=== PATIENT | male | born 1955 | race Caucasian/White ===

== ENCOUNTER 2023-03-16 18:02 | Inpatient (IN) | payer MEDICAID ==
[2023-03-16] VITALS (9 sets, daily range): BP systolic 83–122; BP diastolic 50–70; TEMP 100.6; O2SAT 91–97
[~2023-03-16] VITALS: Ht 175.3 cm; Wt 69.9 kg
[2023-03-16 18:57] LABS: BASOPHILS % (AUTO) 0.1 % (0.0-2.0); EOSINOPHILS % (AUTO) 0.3 % (0.0-6.0); HEMATOCRIT 37 % (39-51); HEMOGLOBIN 12.1 g/dL (13.5-17.5); LYMPHOCYTES # (AUTO) 0.5 K/uL (0.8-4.8); LYMPHOCYTES % (AUTO) 5.7 % (20.0-44.0); MEAN CORPUSCULAR HEMOGLOBIN 26 PG (26.0-33.0); MEAN CORPUSCULAR HGB CONC 32 g/dl (31.0-36.0); MEAN CORPUSCULAR VOLUME 81 fL (80-96); MONOCYTES % (AUTO) 0.4 % (2.0-12.0); NEUTROPHILS # (AUTO) 8.4 K/uL (1.8-8.9); NEUTROPHILS % (AUTO) 93.5 % (43.0-81.0); PLATELET COUNT (AUTO) 295 K/uL (150-450); RED BLOOD CELL COUNT(AUTO) 4.62 MIL/uL (4.5-6.0); RED CELL DISTRIBUTION WIDTH 15.5 % (11.5-15.0)
[2023-03-16] MEDS ORDERED: VANCOMYCIN 1 GM in IV D5W 250 ML IV ONE (19:00)
[2023-03-16] MEDS ORDERED: IV NS 0.9% 500 ML BAG IV ONE ×2 (19:00→21:00)
[2023-03-16] MEDS ORDERED: IV NS 0.9% 1,000 ML BAG IV ONE (19:00)
[2023-03-16] MEDS ORDERED: ACETAMINOPHEN 650 MG/SUPP.RECT RC ONE ×2 (19:00→19:17)
[2023-03-16] MEDS ORDERED: CEFEPIME 2 GM in IV D5W 50 ML IV ONE (19:00)
[2023-03-16] MEDS ORDERED: BACL10TA PO (19:08)
[2023-03-16] MEDS ORDERED: ZOLP5TAB2 PO (19:08)
[2023-03-16] MEDS ORDERED: SILVER ALGINATE TP (19:08)
[2023-03-16] MEDS ORDERED: ACET-868 PO (19:08)
[2023-03-16] MEDS ORDERED: OXYC5TAB3 PO (19:08)
[2023-03-16] MEDS ORDERED: DOCU250C14 PO (19:08)
[2023-03-16] MEDS ORDERED: GABA600T PO (19:08)
[2023-03-16] MEDS ORDERED: [UNRECOGNIZED DRUG - CODE] SQ (19:08)
[2023-03-16] MEDS ORDERED: NITR0.4T48 SL (19:08)
[2023-03-16] MEDS ORDERED: MELA3TAB41 PO (19:08)
[2023-03-16] MEDS ORDERED: MULT400T5 PO (19:08)
[2023-03-16] MEDS ORDERED: TRIA15OI2 TP (19:08)
[2023-03-16] MEDS ORDERED: SENN-261 PO (19:08)
[2023-03-16 19:11] LABS: INR 1.18 (0.91-1.10); PARTIAL THROMBOPLASTIN TIME 31.4 SEC (24.3-34.3); PROTHROMBIN TIME 12.4 SECS (9.2-11.1)
[2023-03-16 19:15] LABS: LACTIC ACID 5.2 mmol/L (0.4-2.0)
[2023-03-16 19:28] LABS: ALANINE AMINOTRANSFERASE 96 U/L (12-78); ALBUMIN 2.5 g/dL (3.4-5.0); ALKALINE PHOSPHATASE 547 U/L (46-116); ASPARTATE AMINOTRANSFERASE 38 U/L (15-37); BILIRUBIN,DIRECT 0.9 mg/dL (0.0-0.2); BILIRUBIN,TOTAL 1.4 mg/dL (0.2-1.0); CALCIUM, SERUM 9.7 mg/dL (8.5-10.1); CARBON DIOXIDE 25 mmol/L (21-32); CHLORIDE 95 mmol/L (98-107); CREATININE 0.9 mg/dL (0.6-1.3); GLUCOSE 182 mg/dL (74-106); POTASSIUM 3.9 mmol/L (3.5-5.1); SODIUM SERUM 134 mmol/L (136-145); TOTAL PROTEIN, SERUM 8.4 g/dL (6.4-8.2); UREA NITROGEN, BLOOD 25 mg/dL (7-18)
[2023-03-16 20:22] LABS: APPEARANCE,URINE CLOUDY (CLEAR); COLOR,URINE YELLOW (YELLOW)
[2023-03-16 20:23] LABS: BILIRUBIN,URINE NEGATIVE (NEGATIVE); BLOOD, URINE 3+ Ery/uL (NEGATIVE); PROTEIN,URINE 2+ mg/dl (NEGATIVE); UGLUCOSE NEGATIVE (NEGATIVE)
[2023-03-16 20:24] LABS: KETONES,URINE TRACE mg/dL (NEGATIVE); LEUKOCYTE ESTERASE ,URINE 3+ (NEGATIVE); NITRITE, URINE POSITIVE (NEGATIVE); UROBILINOGEN,URINE 0.2 EU/dL (0.2)
[2023-03-16] MEDS ORDERED: NOREPINEPHRINE 8MG/250ML RTU 250 ML IV ONE ×2 (20:34→23:58)
[2023-03-16 20:50] LABS: ADD URINE CULTURE YES; BACTERIA,URINE 4+ /HPF (None Seen); RBC,URINE 21-50 /HPF (0-2); SQUAMOUS EPITHELIAL CELL,UR Few /HPF (None Seen); TRIPLE PHOSPHATE CRYSTAL,UR Few /HPF (None Seen); WBC,URINE TOO NUMEROUS TO COUN /HPF (0-3)
[2023-03-16] MEDS ORDERED: ACETAMINOPHEN 650 MG/SUPP.RECT RC PRN (21:00)
[2023-03-16] MEDS ORDERED: ONDANSETRON HCL/PF 4 MG/2 ML VIAL IVP PRN (21:00)
[2023-03-16] MEDS ORDERED: Z GUARD REMEDY 4 OZ OINT TP PRN (21:00)
[2023-03-16] MEDS ORDERED: NOREPINEPHRINE 8 MG in IV NS 0.9% 242 ML IV PRN (21:00)
[2023-03-16] MEDS: NOREPINEPHRINE 8 MG in IV NS 0.9% 242 ML IV PRN (22:54)
[2023-03-16] MEDS: IV NS 0.9% 1,000 ML IV PRN (23:02)
[2023-03-16] MEDS: HYDROCORTISONE SOD SUCCINATE 100 MG/2 ML VIAL IV SCH (23:02)
[2023-03-16] MEDS: PANTOPRAZOLE 40 MG VIAL IV SCH (23:02)
[2023-03-16] MEDS: ENOXAPARIN SODIUM 40 MG/0.4 ML DISP.SYRIN SQ SCH (23:03)
[2023-03-17] VITALS (91 sets, daily range): BP systolic 76–135; BP diastolic 38–75; TEMP 98.2–103.2; O2SAT 89–97
[2023-03-17] MEDS: NOREPINEPHRINE 8 MG in IV NS 0.9% 242 ML IV PRN ×2 (00:24→06:45)
[2023-03-17 04:29] LABS: BASOPHILS # (AUTO) 0.2 K/uL (0.0-0.2); BASOPHILS % (AUTO) 0.4 % (0.0-2.0); HEMATOCRIT 33 % (39-51); HEMOGLOBIN 10.4 g/dL (13.5-17.5); LYMPHOCYTES # (AUTO) 0.6 K/uL (0.8-4.8); LYMPHOCYTES % (AUTO) 1.2 % (20.0-44.0); MEAN CORPUSCULAR HEMOGLOBIN 26 PG (26.0-33.0); MEAN CORPUSCULAR HGB CONC 32 g/dl (31.0-36.0); MEAN CORPUSCULAR VOLUME 80 fL (80-96); MONOCYTES # (AUTO) 0.9 K/uL (0.1-1.30); MONOCYTES % (AUTO) 1.8 % (2.0-12.0); NEUTROPHILS % (AUTO) 96.6 % (43.0-81.0); PLATELET COUNT (AUTO) 347 K/uL (150-450); RED BLOOD CELL COUNT(AUTO) 4.07 MIL/uL (4.5-6.0); RED CELL DISTRIBUTION WIDTH 15.7 % (11.5-15.0)
[2023-03-17 04:34] LABS: WHITE BLOOD COUNT (AUTO) 48.6 K/uL (4.3-11.0)
[2023-03-17 04:37] LABS: CALCIUM, SERUM 8.8 mg/dL (8.5-10.1); CREATININE 1.3 mg/dL (0.6-1.3); PHOSPHORUS 3.9 mg/dL (2.5-4.9); POTASSIUM 3.5 mmol/L (3.5-5.1)
[2023-03-17 04:47] LABS: MAGNESIUM 1.2 mg/dL (1.8-2.4)
[2023-03-17 04:50] LABS: THYROID STIMULATING HORMONE 0.951 uIU/mL (0.358-3.74)
[2023-03-17 05:09] LABS: BAND % (MANUAL) 19 % (0.0-5.0); LYMPHOCYTES % (MANUAL) 1 % (16-48); MONOCYTES % (MANUAL) 4 % (0-11.0); MYELOCYTES % 1 % (0-0); NEUTROPHILS % (MANUAL) 75 (42-76)
[2023-03-17 05:10] LABS: PLATELET ESTIMATE ADEQUATE
[2023-03-17] MEDS: Magnesium 1GM/D5W 100ML PREMIX 100 ML IV SCH ×2 (06:03→07:11)
[2023-03-17] MEDS ORDERED: CEFEPIME 1 GM in IV D5W 50 ML IV SCH (07:00)
[2023-03-17] MEDS: VANCOMYCIN 0.75 GM in IV D5W 250 ML IV SCH ×2 (08:07→20:00)
[2023-03-17] MEDS: CEFEPIME 2 GM in IV D5W 100 ML IV SCH ×2 (08:07→19:07)
[2023-03-17] MEDS: HYDROCORTISONE SOD SUCCINATE 100 MG/2 ML VIAL IV SCH ×2 (08:13→21:11)
[2023-03-17] MEDS: PANTOPRAZOLE 40 MG VIAL IV SCH (08:13)
[2023-03-17] MEDS: DAKINS QUARTER STRENGTH (0.125%) 480 ML BOTTLE TOP SCH (09:00)
[2023-03-17] MEDS: IV NS 0.9% 1,000 ML IV PRN (12:41)
[2023-03-17] MEDS: ACETAMINOPHEN 325 MG TABLET PO PRN (19:09)
[2023-03-17] MEDS: ENOXAPARIN SODIUM 40 MG/0.4 ML DISP.SYRIN SQ SCH (21:11)
[2023-03-18] VITALS (93 sets, daily range): BP systolic 74–150; BP diastolic 42–99; TEMP 98.2–100; O2SAT 95–99
[2023-03-18] MEDS: IV NS 0.9% 1,000 ML IV PRN ×3 (00:01→19:54)
[2023-03-18] MEDS ORDERED: NOREPINEPHRINE 8MG/250ML RTU 250 ML IV ONE (00:54)
[2023-03-18] MEDS: NOREPINEPHRINE 8 MG in IV NS 0.9% 242 ML IV PRN ×2 (02:10→19:57)
[2023-03-18 04:46] LABS: HEMATOCRIT 31 % (39-51); HEMOGLOBIN 9.9 g/dL (13.5-17.5); LYMPHOCYTES # (AUTO) 1.1 K/uL (0.8-4.8); LYMPHOCYTES % (AUTO) 3.5 % (20.0-44.0); MEAN CORPUSCULAR HEMOGLOBIN 26 PG (26.0-33.0); MEAN CORPUSCULAR HGB CONC 33 g/dl (31.0-36.0); MEAN CORPUSCULAR VOLUME 79 fL (80-96); MONOCYTES # (AUTO) 0.6 K/uL (0.1-1.30); NEUTROPHILS # (AUTO) 28.3 K/uL (1.8-8.9); NEUTROPHILS % (AUTO) 94.5 % (43.0-81.0); PLATELET COUNT (AUTO) 286 K/uL (150-450); RED BLOOD CELL COUNT(AUTO) 3.85 MIL/uL (4.5-6.0); RED CELL DISTRIBUTION WIDTH 15.6 % (11.5-15.0)
[2023-03-18 05:10] LABS: ALBUMIN 1.8 g/dL (3.4-5.0); BILIRUBIN,TOTAL 0.9 mg/dL (0.2-1.0); CALCIUM, SERUM 8.9 mg/dL (8.5-10.1); CREATININE 1.1 mg/dL (0.6-1.3); MAGNESIUM 1.9 mg/dL (1.8-2.4); PHOSPHORUS 2.6 mg/dL (2.5-4.9); POTASSIUM 3.6 mmol/L (3.5-5.1); TOTAL PROTEIN, SERUM 6.9 g/dL (6.4-8.2)
[2023-03-18 05:16] LABS: ANISOCYTOSIS 1+; BAND % (MANUAL) 11 % (0.0-5.0); LYMPHOCYTES % (MANUAL) 8 % (16-48); MONOCYTES % (MANUAL) 1 % (0-11.0); NEUTROPHILS % (MANUAL) 80 (42-76); PLATELET ESTIMATE ADEQUATE
[2023-03-18] MEDS: CEFEPIME 2 GM in IV D5W 100 ML IV SCH ×2 (07:26→19:45)
[2023-03-18] MEDS: VANCOMYCIN 0.75 GM in IV D5W 250 ML IV SCH ×2 (08:24→20:39)
[2023-03-18] MEDS: HYDROCORTISONE SOD SUCCINATE 100 MG/2 ML VIAL IV SCH ×2 (09:04→20:42)
[2023-03-18] MEDS: PANTOPRAZOLE 40 MG VIAL IV SCH (09:04)
[2023-03-18] MEDS: DAKINS QUARTER STRENGTH (0.125%) 480 ML BOTTLE TOP SCH (09:05)
[2023-03-18] MEDS: PROSOURCE / PROSTAT (PYXIS) 30 ML UDC PO SCH ×2 (14:51→17:12)
[2023-03-18] MEDS: ARGININE/GLUTAMINE/CALCIUM BMB 1 EACH POWD.PACK PO SCH (17:12)
[2023-03-18] MEDS: ENOXAPARIN SODIUM 40 MG/0.4 ML DISP.SYRIN SQ SCH (20:43)
[2023-03-18] MEDS: MORPHINE SULFATE INJ 2 MG/ML DISP.SYRIN IV PRN (21:32)
[2023-03-19] VITALS (44 sets, daily range): BP systolic 93–136; BP diastolic 57–97; TEMP 98.1–99.7; O2SAT 86–100
[2023-03-19] MEDS: MORPHINE SULFATE INJ 2 MG/ML DISP.SYRIN IV PRN ×2 (01:39→05:48)
[2023-03-19 04:56] LABS: BASOPHILS % (AUTO) 0.1 % (0.0-2.0); HEMATOCRIT 28 % (39-51); HEMOGLOBIN 9.2 g/dL (13.5-17.5); LYMPHOCYTES # (AUTO) 1.5 K/uL (0.8-4.8); MEAN CORPUSCULAR HEMOGLOBIN 26 PG (26.0-33.0); MEAN CORPUSCULAR HGB CONC 32 g/dl (31.0-36.0); MEAN CORPUSCULAR VOLUME 79 fL (80-96); MONOCYTES # (AUTO) 0.5 K/uL (0.1-1.30); NEUTROPHILS % (AUTO) 91.9 % (43.0-81.0); PLATELET COUNT (AUTO) 267 K/uL (150-450); RED CELL DISTRIBUTION WIDTH 15.6 % (11.5-15.0); WHITE BLOOD COUNT (AUTO) 25.1 K/uL (4.3-11.0)
[2023-03-19 05:21] LABS: BAND % (MANUAL) 7 % (0.0-5.0); LYMPHOCYTES % (MANUAL) 3 % (16-48); MONOCYTES % (MANUAL) 2 % (0-11.0); NEUTROPHILS % (MANUAL) 88 (42-76); PLATELET ESTIMATE ADEQUATE
[2023-03-19 05:31] LABS: ALBUMIN 1.7 g/dL (3.4-5.0); BILIRUBIN,TOTAL 0.6 mg/dL (0.2-1.0); CALCIUM, SERUM 8.4 mg/dL (8.5-10.1); CREATININE 0.6 mg/dL (0.6-1.3); MAGNESIUM 1.7 mg/dL (1.8-2.4); PHOSPHORUS 1.4 mg/dL (2.5-4.9); POTASSIUM 3.1 mmol/L (3.5-5.1); TOTAL PROTEIN, SERUM 6.5 g/dL (6.4-8.2)
[2023-03-19] MEDS: IV NS 0.9% 1,000 ML IV PRN (05:48)
[2023-03-19] MEDS: HYDROCORTISONE SOD SUCCINATE 100 MG/2 ML VIAL IV SCH ×2 (08:03→21:38)
[2023-03-19] MEDS: PANTOPRAZOLE 40 MG/PACK PACK PO SCH (08:03)
[2023-03-19] MEDS: CEFEPIME 2 GM in IV D5W 100 ML IV SCH ×2 (08:04→20:28)
[2023-03-19] MEDS: PROSOURCE / PROSTAT (PYXIS) 30 ML UDC PO SCH ×4 (08:18→17:40)
[2023-03-19] MEDS: ARGININE/GLUTAMINE/CALCIUM BMB 1 EACH POWD.PACK PO SCH ×2 (08:18→17:40)
[2023-03-19] MEDS: VANCOMYCIN 0.75 GM in IV D5W 250 ML IV SCH ×2 (09:07→20:55)
[2023-03-19] MEDS: POTASSIUM PHOSPHATE MM 7.5 MMOL in IV NS 0.9% 100 ML IV SCH ×2 (09:11→11:59)
[2023-03-19] MEDS: DAKINS QUARTER STRENGTH (0.125%) 480 ML BOTTLE TOP SCH (09:58)
[2023-03-19] MEDS ORDERED: POTASSIUM CHLORIDE 20 MEQ POWDER PACKET PO ONE (11:00)
[2023-03-19] MEDS ORDERED: IV NS 0.9% 1,000 ML IV PRN (16:04)
[2023-03-19] MEDS: MUPIROCIN OINT 2% 22 GM TUBE TP SCH (18:50)
[2023-03-19] MEDS: ENOXAPARIN SODIUM 40 MG/0.4 ML DISP.SYRIN SQ SCH (21:38)
[2023-03-20] VITALS: BP 122/76; TEMP 99.5; O2SAT 95
[2023-03-20 04:00] VITALS: BP 102/78; TEMP 99.1; O2SAT 95
[2023-03-20 06:45] LABS: HEMATOCRIT 30 % (39-51); HEMOGLOBIN 9.9 g/dL (13.5-17.5); LYMPHOCYTES # (AUTO) 2.1 K/uL (0.8-4.8); LYMPHOCYTES % (AUTO) 14.5 % (20.0-44.0); MEAN CORPUSCULAR HEMOGLOBIN 26 PG (26.0-33.0); MEAN CORPUSCULAR HGB CONC 33 g/dl (31.0-36.0); MEAN CORPUSCULAR VOLUME 78 fL (80-96); MONOCYTES # (AUTO) 0.5 K/uL (0.1-1.30); MONOCYTES % (AUTO) 3.4 % (2.0-12.0); NEUTROPHILS # (AUTO) 11.7 K/uL (1.8-8.9); NEUTROPHILS % (AUTO) 82.1 % (43.0-81.0); PLATELET COUNT (AUTO) 288 K/uL (150-450); RED CELL DISTRIBUTION WIDTH 15.3 % (11.5-15.0); WHITE BLOOD COUNT (AUTO) 14.3 K/uL (4.3-11.0)
[2023-03-20 07:07] LABS: CALCIUM, SERUM 8.6 mg/dL (8.5-10.1); CREATININE 0.7 mg/dL (0.6-1.3)
[2023-03-20 07:28] LABS: POTASSIUM 2.7 mmol/L (3.5-5.1)
[2023-03-20] MEDS: CEFEPIME 2 GM in IV D5W 100 ML IV SCH ×3 (07:34→21:41)
[2023-03-20 08:00] VITALS: BP 115/66; TEMP 98.8; O2SAT 96
[2023-03-20] MEDS: ARGININE/GLUTAMINE/CALCIUM BMB 1 EACH POWD.PACK PO SCH ×2 (08:18→16:04)
[2023-03-20] MEDS: HYDROCORTISONE SOD SUCCINATE 100 MG/2 ML VIAL IV SCH ×2 (08:18→21:40)
[2023-03-20] MEDS: VANCOMYCIN 0.75 GM in IV D5W 250 ML IV SCH (08:18)
[2023-03-20] MEDS: PROSOURCE / PROSTAT (PYXIS) 30 ML UDC PO SCH ×3 (08:18→16:04)
[2023-03-20] MEDS: PANTOPRAZOLE 40 MG/PACK PACK PO SCH (08:18)
[2023-03-20] MEDS: MUPIROCIN OINT 2% 22 GM TUBE TP SCH ×2 (08:19→16:04)
[2023-03-20] MEDS: DAKINS QUARTER STRENGTH (0.125%) 480 ML BOTTLE TOP SCH (08:32)
[2023-03-20] MEDS: POTASSIUM CL. PREMIX PERIPHER. 50 ML IV SCH ×4 (10:16→13:23)
[2023-03-20] MEDS ORDERED: POTASSIUM CHLORIDE 20 MEQ TAB.PRT.SR PO ONE (10:30)
[2023-03-20] MEDS: MORPHINE SULFATE INJ 2 MG/ML DISP.SYRIN IV PRN ×3 (11:10→21:36)
[2023-03-20 12:30] VITALS: BP 113/76; TEMP 100.4; O2SAT 97
[2023-03-20] MEDS: ACETAMINOPHEN 325 MG TABLET PO PRN (12:34)
[2023-03-20 16:00] VITALS: BP 106/70; TEMP 98.8; O2SAT 96
[2023-03-20 20:00] VITALS: BP 118/71; TEMP 98.8; O2SAT 96
[2023-03-20] MEDS: VANCOMYCIN 1 GM in IV D5W 250ml IV SCH (20:18)
[2023-03-20] MEDS: ENOXAPARIN SODIUM 40 MG/0.4 ML DISP.SYRIN SQ SCH (21:46)
[2023-03-21] VITALS: BP 130/65; TEMP 98.6; O2SAT 95
[2023-03-21] MEDS: CEFEPIME 2 GM in IV D5W 100 ML IV SCH ×3 (04:33→21:10)
[2023-03-21 04:45] VITALS: BP 103/73; TEMP 98.3; O2SAT 95
[2023-03-21 06:38] LABS: BASOPHILS % (AUTO) 0.2 % (0.0-2.0); EOSINOPHILS % (AUTO) 0.1 % (0.0-6.0); HEMATOCRIT 32 % (39-51); HEMOGLOBIN 10.5 g/dL (13.5-17.5); LYMPHOCYTES # (AUTO) 1.9 K/uL (0.8-4.8); LYMPHOCYTES % (AUTO) 13.5 % (20.0-44.0); MEAN CORPUSCULAR HEMOGLOBIN 26 PG (26.0-33.0); MEAN CORPUSCULAR HGB CONC 33 g/dl (31.0-36.0); MEAN CORPUSCULAR VOLUME 79 fL (80-96); MONOCYTES # (AUTO) 0.8 K/uL (0.1-1.30); MONOCYTES % (AUTO) 5.7 % (2.0-12.0); NEUTROPHILS # (AUTO) 11.5 K/uL (1.8-8.9); NEUTROPHILS % (AUTO) 80.5 % (43.0-81.0); PLATELET COUNT (AUTO) 277 K/uL (150-450); RED BLOOD CELL COUNT(AUTO) 4.03 MIL/uL (4.5-6.0); RED CELL DISTRIBUTION WIDTH 15.3 % (11.5-15.0); WHITE BLOOD COUNT (AUTO) 14.3 K/uL (4.3-11.0)
[2023-03-21 07:30] LABS: ALBUMIN 1.9 g/dL (3.4-5.0); BILIRUBIN,TOTAL 0.7 mg/dL (0.2-1.0); CALCIUM, SERUM 8.2 mg/dL (8.5-10.1); CREATININE 0.6 mg/dL (0.6-1.3); MAGNESIUM 1.6 mg/dL (1.8-2.4); PHOSPHORUS 2.3 mg/dL (2.5-4.9); POTASSIUM 3.1 mmol/L (3.5-5.1); TOTAL PROTEIN, SERUM 6.2 g/dL (6.4-8.2)
[2023-03-21 08:00] VITALS: BP 139/67; TEMP 98.8; O2SAT 98
[2023-03-21 08:17] LABS: ANISOCYTOSIS 1+; LYMPHOCYTES % (MANUAL) 14 % (16-48); MONOCYTES % (MANUAL) 4 % (0-11.0); MYELOCYTES % 1 % (0-0); NEUTROPHILS % (MANUAL) 81 (42-76); PLATELET ESTIMATE ADEQUATE
[2023-03-21] MEDS: VANCOMYCIN 1 GM in IV D5W 250ml IV SCH ×2 (09:18→20:53)
[2023-03-21] MEDS: PANTOPRAZOLE 40 MG/PACK PACK PO SCH (09:18)
[2023-03-21] MEDS: ARGININE/GLUTAMINE/CALCIUM BMB 1 EACH POWD.PACK PO SCH ×2 (09:18→18:34)
[2023-03-21] MEDS: HYDROCORTISONE SOD SUCCINATE 100 MG/2 ML VIAL IV SCH (09:18)
[2023-03-21] MEDS: PROSOURCE / PROSTAT (PYXIS) 30 ML UDC PO SCH ×3 (09:19→18:35)
[2023-03-21] MEDS: DAKINS QUARTER STRENGTH (0.125%) 480 ML BOTTLE TOP SCH (09:21)
[2023-03-21] MEDS: MUPIROCIN OINT 2% 22 GM TUBE TP SCH ×2 (09:22→18:35)
[2023-03-21] MEDS ORDERED: MAGNESIUM OXIDE 400 MG TABLET PO ONE (10:00)
[2023-03-21] MEDS ORDERED: LIDOCAINE 1%-EPI 1:100,000 20 ML VIAL TP ONE (10:00)
[2023-03-21 12:00] VITALS: BP 122/60; TEMP 99; O2SAT 96
[2023-03-21] MEDS ORDERED: POTASSIUM CHLORIDE 20 MEQ POWDER PACKET PO ONE (12:00)
[2023-03-21] MEDS ORDERED: NITROGLYCERIN 0.4 MG/TAB BOTTLE SL PRN (13:00)
[2023-03-21] MEDS: GABAPENTIN 300 MG CAPSULE PO SCH ×2 (14:01→18:35)
[2023-03-21] MEDS: BACLOFEN (10 MG) 10 MG TABLET PO SCH ×2 (14:01→18:34)
[2023-03-21] MEDS: oxyCODONE IR immediate release 5 MG PO PRN (15:12)
[2023-03-21 16:00] VITALS: BP 157/71; TEMP 99.5
[2023-03-21] MEDS: DOCUSATE SODIUM 250 MG CAPSULE PO SCH (18:34)
[2023-03-21] MEDS: SENNOSIDES 8.6 MG TABLET PO SCH (18:39)
[2023-03-21] MEDS: TRIAMCINOLONE OINT 0.1% 15 GM TUBE TP SCH (18:40)
[2023-03-21 20:00] VITALS: BP 117/67; TEMP 99; O2SAT 96
[2023-03-21] MEDS: ENOXAPARIN SODIUM 40 MG/0.4 ML DISP.SYRIN SQ SCH (21:16)
[2023-03-21] MEDS: ZOLPIDEM TARTRATE 5 MG TABLET PO SCH (21:41)
[2023-03-22] VITALS: BP 110/63; TEMP 98.8; O2SAT 98
[2023-03-22] MEDS: CEFEPIME 2 GM in IV D5W 100 ML IV SCH ×2 (04:20→12:15)
[2023-03-22 06:00] VITALS: BP 117/70; TEMP 98.8; O2SAT 98
[2023-03-22] MEDS: ACETAMINOPHEN 325 MG TABLET PO PRN (07:30)
[2023-03-22] MEDS: PANTOPRAZOLE 40 MG/PACK PACK PO SCH (07:39)
[2023-03-22] MEDS: VANCOMYCIN 1 GM in IV D5W 250ml IV SCH (07:43)
[2023-03-22 08:00] VITALS: BP 95/73; TEMP 98; O2SAT 100
[2023-03-22] MEDS: DAKINS QUARTER STRENGTH (0.125%) 480 ML BOTTLE TOP SCH (08:29)
[2023-03-22] MEDS: MUPIROCIN OINT 2% 22 GM TUBE TP SCH ×2 (08:29→16:34)
[2023-03-22] MEDS: TRIAMCINOLONE OINT 0.1% 15 GM TUBE TP SCH ×2 (08:29→16:34)
[2023-03-22] MEDS: GABAPENTIN 300 MG CAPSULE PO SCH ×3 (08:33→16:49)
[2023-03-22] MEDS: SENNOSIDES 8.6 MG TABLET PO SCH ×2 (08:33→17:00)
[2023-03-22] MEDS: DOCUSATE SODIUM 250 MG CAPSULE PO SCH ×2 (08:33→17:00)
[2023-03-22] MEDS: ARGININE/GLUTAMINE/CALCIUM BMB 1 EACH POWD.PACK PO SCH ×2 (08:33→17:00)
[2023-03-22] MEDS: BACLOFEN (10 MG) 10 MG TABLET PO SCH ×3 (08:33→16:48)
[2023-03-22] MEDS: PROSOURCE / PROSTAT (PYXIS) 30 ML UDC PO SCH ×3 (08:33→17:00)
[2023-03-22] MEDS: MULTIVITAMINS,THERAGRAN 1 UDTAB TABLET PO SCH (08:34)
[2023-03-22 12:00] VITALS: BP 121/74; TEMP 98.8; O2SAT 100
[2023-03-22 16:00] VITALS: BP 114/60; TEMP 98.9; O2SAT 99
[2023-03-22] MEDS: CEFTRIAXONE 1 G in IV D5W 50 ML IV SCH (16:50)
[2023-03-22] MEDS ORDERED: CEFT1VIA15 IV (16:55)
[2023-03-22] MEDS ORDERED: DOXY100T2 PO (16:55)
[2023-03-22] MEDS ORDERED: POTASSIUM CHLORIDE 20 MEQ TAB.PRT.SR PO ONE ×2 (18:30→19:00)
[2023-03-22 20:00] VITALS: BP 121/71; TEMP 99; O2SAT 99
[2023-03-22] MEDS: DOXYCYCLINE HYCLATE (100 MG) 100 MG TABLET PO SCH (21:05)
[2023-03-22] MEDS: ZOLPIDEM TARTRATE 5 MG TABLET PO SCH (21:06)
[2023-03-22] MEDS: ENOXAPARIN SODIUM 40 MG/0.4 ML DISP.SYRIN SQ SCH (21:08)
[2023-03-23] VITALS: BP 118/72; TEMP 98.5; O2SAT 97
[2023-03-23 04:00] VITALS: BP 110/64; TEMP 98.8; O2SAT 96
[2023-03-23] MEDS: MORPHINE SULFATE INJ 2 MG/ML DISP.SYRIN IV PRN (05:02)
[2023-03-23] MEDS: ACETAMINOPHEN 325 MG TABLET PO PRN (06:36)
[2023-03-23] MEDS: PANTOPRAZOLE 40 MG/PACK PACK PO SCH (07:52)
[2023-03-23 08:00] VITALS: BP 104/71; TEMP 98.2; O2SAT 100
[2023-03-23] MEDS: GABAPENTIN 300 MG CAPSULE PO SCH ×3 (08:20→17:32)
[2023-03-23] MEDS: SENNOSIDES 8.6 MG TABLET PO SCH ×2 (08:20→17:33)
[2023-03-23] MEDS: BACLOFEN (10 MG) 10 MG TABLET PO SCH ×3 (08:20→17:32)
[2023-03-23] MEDS: ARGININE/GLUTAMINE/CALCIUM BMB 1 EACH POWD.PACK PO SCH ×2 (08:20→17:33)
[2023-03-23] MEDS: PROSOURCE / PROSTAT (PYXIS) 30 ML UDC PO SCH ×3 (08:20→17:33)
[2023-03-23] MEDS: DOXYCYCLINE HYCLATE (100 MG) 100 MG TABLET PO SCH (08:20)
[2023-03-23] MEDS: MULTIVITAMINS,THERAGRAN 1 UDTAB TABLET PO SCH (08:20)
[2023-03-23] MEDS: DOCUSATE SODIUM 250 MG CAPSULE PO SCH ×2 (08:20→17:32)
[2023-03-23] MEDS: oxyCODONE IR immediate release 5 MG PO PRN ×3 (09:07→18:13)
[2023-03-23] MEDS: TRIAMCINOLONE OINT 0.1% 15 GM TUBE TP SCH ×2 (11:18→18:12)
[2023-03-23] MEDS: MUPIROCIN OINT 2% 22 GM TUBE TP SCH ×2 (11:19→18:12)
[2023-03-23] MEDS: DAKINS QUARTER STRENGTH (0.125%) 480 ML BOTTLE TOP SCH (11:19)
[2023-03-23 12:00] VITALS: BP 114/70; TEMP 98.4; O2SAT 100
[2023-03-23 16:00] VITALS: BP 104/60; TEMP 98.4; O2SAT 100
[2023-03-23] MEDS: CEFTRIAXONE 1 G in IV D5W 50 ML IV SCH (18:04)
== END 2023-03-23 18:55 | DRG 710 ==
LOC: ER 18:30 → ICU 21:30 → TELE1 03-19 17:09
PROVIDERS: ADMIT Nurse Practitioner Acute Care; ATTEND Student in an Organized Health Care Education/Training Program
PROC: 05HF33Z Insertion of Infusion Device into Left Cephalic Vein, Percutaneous Approach (ICD-10-PCS; 2023-03-17)
PROC: 0QB10ZZ Excision of Sacrum, Open Approach (ICD-10-PCS; principal; 2023-03-21)
DX: A41.9 Sepsis, unspecified organism (principal); R65.21 Severe sepsis with septic shock; G92.8 Other toxic encephalopathy; G82.50 Quadriplegia, unspecified; L89.154 Pressure ulcer of sacral region, stage 4; L89.896 Pressure-induced deep tissue damage of other site; D68.69 Other thrombophilia; E87.20 Acidosis, unspecified; J90 Pleural effusion, not elsewhere classified; L89.623 Pressure ulcer of left heel, stage 3; E86.1 Hypovolemia; N39.0 Urinary tract infection, site not specified; E87.1 Hypo-osmolality and hyponatremia; E87.6 Hypokalemia; G89.4 Chronic pain syndrome; Z87.891 Personal history of nicotine dependence; R74.01 Elevation of levels of liver transaminase levels; Z74.09 Other reduced mobility; Z20.822 Contact with and (suspected) exposure to COVID-19; Z22.322 Carrier or suspected carrier of Methicillin resistant Staphylococcus aureus; B96.89 Other specified bacterial agents as the cause of diseases classified elsewhere; M89.8X9 Other specified disorders of bone, unspecified site; M48.02 Spinal stenosis, cervical region; J98.11 Atelectasis; N31.9 Neuromuscular dysfunction of bladder, unspecified; R31.9 Hematuria, unspecified; Z98.1 Arthrodesis status; L89.516 Pressure-induced deep tissue damage of right ankle; L89.106 Pressure-induced deep tissue damage of unspecified part of back; M24.575 Contracture, left foot; S91.301A Unspecified open wound, right foot, initial encounter; X58.XXXA Exposure to other specified factors, initial encounter; Y93.9 Activity, unspecified; Y92.89 Other specified places as the place of occurrence of the external cause; I89.0 Lymphedema, not elsewhere classified; D64.9 Anemia, unspecified; E11.65 Type 2 diabetes mellitus with hyperglycemia; S14.129A Central cord syndrome at unspecified level of cervical spinal cord, initial encounter; N17.9 Acute kidney failure, unspecified
CPT/HCPCS: 36410; 36415; 70450-TC; 71045-TC; 80048-TC; 80053-TC; 80061-TC; 80076-TC; 80202-TC; 81001; 82533; 83605-TC; 83735-TC; 84100-TC; 84443-TC; 84484-TC; 85025-TC; 85730-TC; 87040-TC; 87081-TC; 87086-TC; 87186-TC; 92526; 92611-TC; 93307-TC; A4223; A6253; A6403; C9113; G0378; J0692; J0696; J1650; J1720; J2270; J3370; J3475; J3480; J3490; J7030; J7040; J7050; J7060

== ENCOUNTER 2023-07-28 18:50 | Inpatient (IN) | payer MEDICAID ==
[~2023-07-28] VITALS: Ht 170.2 cm; Wt 72.6 kg
[~2023-07-28 18:50] MED LIST: ACET-868 PO; BACL10TA PO; CEFT1VIA15 IV; DOCU250C14 PO; DOXY100T2 PO; GABA600T PO; MELA3TAB41 PO; MULT400T5 PO; NITR0.4T48 SL; OXYC5TAB3 PO; SENN-261 PO; SILVER ALGINATE TP; TRIA15OI2 TP; ZOLP5TAB2 PO; [UNRECOGNIZED DRUG - CODE] SQ
[2023-07-28] MEDS: IV NS 0.9% 1,000 ML BAG IV ONE (19:21)
[2023-07-28] MEDS ORDERED: POLY17PO4 PO (19:29)
[2023-07-28] MEDS ORDERED: AMIN30LI2 PO (19:29)
[2023-07-28] MEDS ORDERED: LORA-258 PO (19:29)
[2023-07-28] MEDS ORDERED: NA P133E RC (19:29)
[2023-07-28] MEDS ORDERED: POVI3780 TP (19:29)
[2023-07-28] MEDS ORDERED: MENT71OI2 TP (19:29)
[2023-07-28] MEDS ORDERED: ONDA4TAB5 PO (19:29)
[2023-07-28] MEDS: PIPERACILLIN /TAZOBACTAM 3.375 G in IV D5W 50 ML IV ONE (20:00)
[2023-07-28 20:06] LABS: BASOPHILS % (AUTO) 0.1 % (0.0-2.0); EOSINOPHILS % (AUTO) 0.3 % (0.0-6.0); HEMATOCRIT 32 % (39-51); HEMOGLOBIN 10.6 g/dL (13.5-17.5); LYMPHOCYTES # (AUTO) 1.1 K/uL (0.8-4.8); LYMPHOCYTES % (AUTO) 6.2 % (20.0-44.0); MEAN CORPUSCULAR HEMOGLOBIN 27 PG (26.0-33.0); MEAN CORPUSCULAR HGB CONC 33 g/dl (31.0-36.0); MEAN CORPUSCULAR VOLUME 82 fL (80-96); MONOCYTES # (AUTO) 0.6 K/uL (0.1-1.30); MONOCYTES % (AUTO) 3.7 % (2.0-12.0); NEUTROPHILS # (AUTO) 15.4 K/uL (1.8-8.9); NEUTROPHILS % (AUTO) 89.7 % (43.0-81.0); PLATELET COUNT (AUTO) 260 K/uL (150-450); RED CELL DISTRIBUTION WIDTH 16.1 % (11.5-15.0); WHITE BLOOD COUNT (AUTO) 17.1 K/uL (4.3-11.0)
[2023-07-28 20:14] LABS: APPEARANCE,URINE CLOUDY (CLEAR); BILIRUBIN,URINE 1+ (NEGATIVE); BLOOD, URINE 2+ Ery/uL (NEGATIVE); COLOR,URINE YELLOW (YELLOW); KETONES,URINE NEGATIVE (NEGATIVE); LEUKOCYTE ESTERASE ,URINE 2+ (NEGATIVE); NITRITE, URINE NEGATIVE (NEGATIVE); PROTEIN,URINE 2+ mg/dl (NEGATIVE); UGLUCOSE 3+ mg/dL (NEGATIVE)
[2023-07-28 20:21] LABS: INR 1.11 (0.91-1.10); PARTIAL THROMBOPLASTIN TIME 31.8 SEC (24.3-34.3); PROTHROMBIN TIME 11.7 SECS (9.2-11.1)
[2023-07-28 20:29] LABS: LACTIC ACID 1.4 mmol/L (0.4-2.0)
[2023-07-28 20:31] LABS: CALCIUM, SERUM 9.7 mg/dL (8.5-10.1); CARBON DIOXIDE 25 mmol/L (21-32); CHLORIDE 97 mmol/L (98-107); CREATININE 0.9 mg/dL (0.6-1.3); POTASSIUM 3.4 mmol/L (3.5-5.1); SODIUM SERUM 133 mmol/L (136-145); UREA NITROGEN, BLOOD 25 mg/dL (7-18)
[2023-07-28 20:37] LABS: ALANINE AMINOTRANSFERASE 187 U/L (12-78); ALBUMIN 2.4 g/dL (3.4-5.0); ALKALINE PHOSPHATASE 504 U/L (46-116); ASPARTATE AMINOTRANSFERASE 187 U/L (15-37); BILIRUBIN,TOTAL 2.6 mg/dL (0.2-1.0)
[2023-07-28 20:39] LABS: GLUCOSE 425 mg/dL (74-106)
[2023-07-28] MEDS: VANCOMYCIN 1 GM in IV D5W 250 ML IV ONE (20:39)
[2023-07-28 21:01] LABS: ADD URINE CULTURE YES; BACTERIA,URINE 3+ /HPF (None Seen); MUCUS,URINE Moderate /LPF (None Seen); RBC,URINE 21-50 /HPF (0-2); SQUAMOUS EPITHELIAL CELL,UR 0-2 /HPF (None Seen); TRIPLE PHOSPHATE CRYSTAL,UR Few /HPF (None Seen); WBC,URINE 21-50 /HPF (0-3)
[2023-07-28] MEDS ORDERED: ACETAMINOPHEN ES 500 MG TABLET ONE (22:04)
[2023-07-28] MEDS: INSULIN REGULAR, HUMAN 100 UNIT/ML 10 ML VIAL SQ ONE (22:27)
[2023-07-28] MEDS: ACETAMINOPHEN ES 500 MG TABLET PO ONE (22:32)
[2023-07-28] MEDS ORDERED: ZOLPIDEM TARTRATE 5 MG TABLET PO PRN (23:00)
[2023-07-28] MEDS ORDERED: Z GUARD REMEDY 4 OZ OINT TP PRN (23:00)
[2023-07-28] MEDS ORDERED: MAG HYDROX/AL HYDROX/SIMETH 30 ML UDC PO PRN (23:00)
[2023-07-28] MEDS ORDERED: ONDANSETRON HCL/PF 4 MG/2 ML VIAL IVP PRN (23:00)
[2023-07-28] MEDS ORDERED: MAGNESIUM HYDROXIDE 30 ML UDC PO PRN (23:00)
[2023-07-28] MEDS ORDERED: DEXTROSE 50%-WATER 50 ML DISP.SYRIN IV PRN (23:00)
[2023-07-28] MEDS ORDERED: ACETAMINOPHEN 325 MG TABLET PO PRN (23:30)
[2023-07-28] MEDS ORDERED: NA PHOS,M-B/NA PHOS,DI-BA 1 EA ENEMA RC PRN (23:30)
[2023-07-29] MEDS ORDERED: ONDANSETRON 4 MG TAB.RAPDIS PO PRN (02:30)
[2023-07-29] MEDS: PIPERACI/TAZO 3.375GM/D5W 50ML PB IV ONE (03:57)
[2023-07-29 04:00] VITALS: BP 111/67; TEMP 99; O2SAT 97
[2023-07-29] MEDS: ENOXAPARIN SODIUM 40 MG/0.4 ML DISP.SYRIN SQ SCH (05:09)
[2023-07-29] MEDS: ZOSYN IVPB 3.375 G in IV D5W 50ml IV SCH ×2 (05:10→10:19)
[2023-07-29] MEDS: IV NS 0.9% 1,000 ML IV PRN (05:13)
[2023-07-29] MEDS: PANTOPRAZOLE 40 MG TABLET.DR PO SCH (07:46)
[2023-07-29] MEDS: BLOOD SUGAR DIAGNOSTIC 1 EACH STRIP VI SCH (07:47)
[2023-07-29] MEDS: VANCOMYCIN HCL 750 MG in IV D5W 250 ML IV SCH (07:47)
[2023-07-29] MEDS: INSULIN REGULAR, HUMAN 100 UNIT/ML 3 ML VIAL SQ PRN (07:57)
[2023-07-29 08:00] VITALS: BP 115/74; TEMP 97.7; O2SAT 97
[2023-07-29] MEDS: POLYETHYLENE GLYCOL 3350 17 GM POWD.PACK PO SCH (08:13)
[2023-07-29] MEDS: MULTIVITAMINS,THERAGRAN 1 UDTAB TABLET PO SCH (08:13)
[2023-07-29] MEDS: DOCUSATE SODIUM 250 MG CAPSULE PO SCH (08:14)
[2023-07-29] MEDS: DOXYCYCLINE HYCLATE (100 MG) 100 MG TABLET PO SCH (08:14)
[2023-07-29] MEDS: SENNOSIDES 8.6 MG TABLET PO SCH (08:14)
[2023-07-29] MEDS: BACLOFEN (10 MG) 10 MG TABLET PO SCH (08:14)
[2023-07-29] MEDS: GABAPENTIN 300 MG CAPSULE PO SCH (08:14)
[2023-07-29] MEDS: PROSTAT (PYXIS) 30 ML UDC PO SCH (08:15)
[2023-07-29 08:26] LABS: ALBUMIN 2.2 g/dL (3.4-5.0); BILIRUBIN,TOTAL 1.6 mg/dL (0.2-1.0); CALCIUM, SERUM 9.5 mg/dL (8.5-10.1); CREATININE 0.6 mg/dL (0.6-1.3); MAGNESIUM 2.1 mg/dL (1.8-2.4); PHOSPHORUS 3.5 mg/dL (2.5-4.9); POTASSIUM 3.2 mmol/L (3.5-5.1); TOTAL PROTEIN, SERUM 7.3 g/dL (6.4-8.2)
[2023-07-29 08:48] LABS: THYROID STIMULATING HORMONE 2.037 uIU/mL (0.358-3.74)
[2023-07-29] MEDS: POTASSIUM CHLORIDE 20 MEQ TAB.PRT.SR PO ONE ×2 (10:16→11:37)
[2023-07-29 12:00] VITALS: BP 122/77; TEMP 97.6; O2SAT 97
[2023-07-29 15:45] LABS: BASOPHILS % (AUTO) 0.2 % (0.0-2.0); EOSINOPHILS # (AUTO) 0.2 K/uL (0.0-0.7); HEMATOCRIT 29 % (39-51); HEMOGLOBIN 9.8 g/dL (13.5-17.5); LYMPHOCYTES # (AUTO) 1.7 K/uL (0.8-4.8); LYMPHOCYTES % (AUTO) 19.8 % (20.0-44.0); MEAN CORPUSCULAR HEMOGLOBIN 28 PG (26.0-33.0); MEAN CORPUSCULAR HGB CONC 33 g/dl (31.0-36.0); MEAN CORPUSCULAR VOLUME 83 fL (80-96); MONOCYTES # (AUTO) 0.5 K/uL (0.1-1.30); MONOCYTES % (AUTO) 5.5 % (2.0-12.0); NEUTROPHILS # (AUTO) 6.4 K/uL (1.8-8.9); NEUTROPHILS % (AUTO) 72.5 % (43.0-81.0); PLATELET COUNT (AUTO) 231 K/uL (150-450); RED BLOOD CELL COUNT(AUTO) 3.53 MIL/uL (4.5-6.0); RED CELL DISTRIBUTION WIDTH 16.6 % (11.5-15.0); WHITE BLOOD COUNT (AUTO) 8.8 K/uL (4.3-11.0)
[2023-07-29 16:00] VITALS: BP 119/73; TEMP 99; O2SAT 97
[2023-07-29 20:00] VITALS: BP 123/85; TEMP 97.9; O2SAT 97
[2023-07-29] MEDS: oxyCODONE IR immediate release 5 MG PO PRN (20:53)
[2023-07-29] MEDS ORDERED: MELATONIN 3 MG TABLET PO SCH (22:00)
[2023-07-29] MEDS: ZOLPIDEM TARTRATE 5 MG TABLET PO SCH (22:21)
[2023-07-29] MEDS: LORAZEPAM 0.5 MG TABLET PO PRN (23:05)
[2023-07-29] MEDS: ACETAMINOPHEN 325 MG TABLET PO PRN (23:48)
[2023-07-30] VITALS: BP 140/70; TEMP 102.7; O2SAT 96
[2023-07-30 04:00] VITALS: BP 102/56; TEMP 100.2; O2SAT 98
[2023-07-30 07:03] LABS: BASOPHILS % (AUTO) 0.2 % (0.0-2.0); EOSINOPHILS # (AUTO) 0.1 K/uL (0.0-0.7); EOSINOPHILS % (AUTO) 0.9 % (0.0-6.0); HEMATOCRIT 28 % (39-51); HEMOGLOBIN 9.5 g/dL (13.5-17.5); LYMPHOCYTES # (AUTO) 1.9 K/uL (0.8-4.8); LYMPHOCYTES % (AUTO) 14.6 % (20.0-44.0); MEAN CORPUSCULAR HEMOGLOBIN 28 PG (26.0-33.0); MEAN CORPUSCULAR HGB CONC 34 g/dl (31.0-36.0); MEAN CORPUSCULAR VOLUME 82 fL (80-96); MONOCYTES # (AUTO) 0.7 K/uL (0.1-1.30); MONOCYTES % (AUTO) 5.6 % (2.0-12.0); NEUTROPHILS # (AUTO) 10.2 K/uL (1.8-8.9); NEUTROPHILS % (AUTO) 78.7 % (43.0-81.0); PLATELET COUNT (AUTO) 296 K/uL (150-450); RED BLOOD CELL COUNT(AUTO) 3.46 MIL/uL (4.5-6.0); RED CELL DISTRIBUTION WIDTH 16.6 % (11.5-15.0); WHITE BLOOD COUNT (AUTO) 12.9 K/uL (4.3-11.0)
[2023-07-30 07:08] LABS: CREATININE 0.9 mg/dL (0.6-1.3)
[2023-07-30 08:00] VITALS: BP 119/67; TEMP 97.7; O2SAT 96
[2023-07-30] MEDS: VANCOMYCIN HCL 750 MG in IV D5W 250 ML IV SCH (11:39)
[2023-07-30 12:00] VITALS: BP 120/65; TEMP 99; O2SAT 96
[2023-07-30 16:00] VITALS: BP 121/67; TEMP 99.3; O2SAT 96
[2023-07-30 20:00] VITALS: BP 115/66; TEMP 98.8; O2SAT 98
[2023-07-30] MEDS: INSULIN GLARGINE, 100 UNIT/ML CARTRIDGE SQ SCH (22:25)
[2023-07-31] VITALS: BP 100/58; TEMP 98.9; O2SAT 97
[2023-07-31 04:00] VITALS: BP 97/59; TEMP 98.6; O2SAT 98
[2023-07-31 06:49] LABS: BASOPHILS % (AUTO) 0.3 % (0.0-2.0); EOSINOPHILS # (AUTO) 0.2 K/uL (0.0-0.7); EOSINOPHILS % (AUTO) 1.8 % (0.0-6.0); HEMATOCRIT 29 % (39-51); HEMOGLOBIN 9.7 g/dL (13.5-17.5); LYMPHOCYTES # (AUTO) 2.3 K/uL (0.8-4.8); LYMPHOCYTES % (AUTO) 22.2 % (20.0-44.0); MEAN CORPUSCULAR HEMOGLOBIN 28 PG (26.0-33.0); MEAN CORPUSCULAR HGB CONC 34 g/dl (31.0-36.0); MEAN CORPUSCULAR VOLUME 83 fL (80-96); MONOCYTES # (AUTO) 0.5 K/uL (0.1-1.30); MONOCYTES % (AUTO) 4.7 % (2.0-12.0); NEUTROPHILS # (AUTO) 7.3 K/uL (1.8-8.9); PLATELET COUNT (AUTO) 289 K/uL (150-450); RED BLOOD CELL COUNT(AUTO) 3.43 MIL/uL (4.5-6.0); RED CELL DISTRIBUTION WIDTH 16.3 % (11.5-15.0); WHITE BLOOD COUNT (AUTO) 10.3 K/uL (4.3-11.0)
[2023-07-31 08:00] VITALS: BP_SYST 130; BP_SYST 132; BP_DIAS 70; BP_DIAS 77; TEMP 97.9; TEMP 98.2; O2SAT 98
[2023-07-31] MEDS: PROSOURCE / PROSTAT (PYXIS) 30 ML UDC PO SCH (09:15)
[2023-07-31] MEDS: THERAHONEY GEL 1.5 OZ TUBE TP SCH (10:58)
[2023-07-31 12:00] VITALS: BP 130/77; TEMP 98.2; O2SAT 98
[2023-07-31 16:00] VITALS: BP 126/66; TEMP 98.7; O2SAT 96
[2023-07-31 20:00] VITALS: BP 128/68; TEMP 98.8; O2SAT 97
[2023-07-31] MEDS: *INSULIN REGULAR(HUMULIN R)HUM 100 UNIT/ML VIAL SQ PRN (21:44)
[2023-08-01 04:00] VITALS: BP 116/70; TEMP 98.8; O2SAT 99
[2023-08-01 06:44] LABS: BASOPHILS % (AUTO) 0.3 % (0.0-2.0); EOSINOPHILS # (AUTO) 0.2 K/uL (0.0-0.7); EOSINOPHILS % (AUTO) 2.1 % (0.0-6.0); HEMATOCRIT 28 % (39-51); HEMOGLOBIN 9.8 g/dL (13.5-17.5); LYMPHOCYTES # (AUTO) 2.3 K/uL (0.8-4.8); MEAN CORPUSCULAR HEMOGLOBIN 29 PG (26.0-33.0); MEAN CORPUSCULAR HGB CONC 35 g/dl (31.0-36.0); MEAN CORPUSCULAR VOLUME 83 fL (80-96); MONOCYTES # (AUTO) 0.3 K/uL (0.1-1.30); MONOCYTES % (AUTO) 3.7 % (2.0-12.0); NEUTROPHILS # (AUTO) 6.4 K/uL (1.8-8.9); NEUTROPHILS % (AUTO) 68.9 % (43.0-81.0); PLATELET COUNT (AUTO) 320 K/uL (150-450); RED BLOOD CELL COUNT(AUTO) 3.41 MIL/uL (4.5-6.0); RED CELL DISTRIBUTION WIDTH 16.3 % (11.5-15.0); WHITE BLOOD COUNT (AUTO) 9.2 K/uL (4.3-11.0)
[2023-08-01 08:00] VITALS: BP 146/80; TEMP 99.2; O2SAT 99
[2023-08-01] MEDS ORDERED: CEPH500C2 PO (09:47)
[2023-08-01 16:00] VITALS: BP 131/74; TEMP 98.2; O2SAT 99
[2023-08-01 20:00] VITALS: BP 131/67; TEMP 98.4; O2SAT 97
[2023-08-02 04:00] VITALS: BP 128/72; TEMP 98.4; O2SAT 96
[2023-08-02] MEDS: MORPHINE SULFATE INJ 2 MG/ML DISP.SYRIN IV PRN (06:00)
[2023-08-02 06:53] LABS: BASOPHILS % (AUTO) 0.2 % (0.0-2.0); EOSINOPHILS # (AUTO) 0.2 K/uL (0.0-0.7); HEMATOCRIT 30 % (39-51); LYMPHOCYTES # (AUTO) 2.5 K/uL (0.8-4.8); LYMPHOCYTES % (AUTO) 24.9 % (20.0-44.0); MEAN CORPUSCULAR HEMOGLOBIN 28 PG (26.0-33.0); MEAN CORPUSCULAR HGB CONC 34 g/dl (31.0-36.0); MEAN CORPUSCULAR VOLUME 83 fL (80-96); MONOCYTES # (AUTO) 0.4 K/uL (0.1-1.30); NEUTROPHILS % (AUTO) 68.9 % (43.0-81.0); PLATELET COUNT (AUTO) 340 K/uL (150-450); RED BLOOD CELL COUNT(AUTO) 3.59 MIL/uL (4.5-6.0); RED CELL DISTRIBUTION WIDTH 16.3 % (11.5-15.0); WHITE BLOOD COUNT (AUTO) 10.2 K/uL (4.3-11.0)
[2023-08-02] MEDS ORDERED: BUPIVACAINE 0.5 % PF 150 MG/30 ML VIAL ONE (07:37)
[2023-08-02] MEDS ORDERED: LIDOCAINE 1% INJ 50 ML MDV IJ ONE (07:37)
[2023-08-02] MEDS ORDERED: FENTANYL PF 250MCG/5ML AMPUL ONE (07:54)
[2023-08-02] MEDS ORDERED: FAMOTIDINE/PF INJ 20 MG/2 ML VIAL IV ONE (07:55)
[2023-08-02] MEDS ORDERED: MIDAZOLAM HCL 2 MG/2ML VIAL ONE (07:55)
[2023-08-02] MEDS ORDERED: HYDROMORPHONE INJ 2 MG/ML DISP.SYRIN ONE (07:55)
[2023-08-02] MEDS ORDERED: VANCOMYCIN 1 GM VIAL ONE (08:20)
[2023-08-02 09:11] VITALS: BP 117/65; TEMP 98.4; O2SAT 99
[2023-08-02] MEDS: DAKINS QUARTER STRENGTH (0.125%) 480 ML BOTTLE TOP SCH (09:39)
[2023-08-03] MEDS ORDERED: MUPIROCIN OINT 2% 22 GM TUBE TP SCH (09:00)
== END 2023-08-02 14:30 | DRG 710 ==
LOC: ER 18:50 → TELE1 07-29 01:47 → MEDSG1 07-31 10:58
PROVIDERS: ADMIT Student in an Organized Health Care Education/Training Program; ATTEND Internal Medicine
PROC: 05HY33Z Insertion of Infusion Device into Upper Vein, Percutaneous Approach (ICD-10-PCS; 2023-08-01)
PROC: 0LBS0ZZ Excision of Right Ankle Tendon, Open Approach (ICD-10-PCS; principal; 2023-08-02)
DX: A41.9 Sepsis, unspecified organism (principal); G82.50 Quadriplegia, unspecified; L89.153 Pressure ulcer of sacral region, stage 3; D68.59 Other primary thrombophilia; E87.1 Hypo-osmolality and hyponatremia; D63.8 Anemia in other chronic diseases classified elsewhere; E88.09 Other disorders of plasma-protein metabolism, not elsewhere classified; L89.513 Pressure ulcer of right ankle, stage 3; L03.115 Cellulitis of right lower limb; N39.0 Urinary tract infection, site not specified; E87.6 Hypokalemia; E11.65 Type 2 diabetes mellitus with hyperglycemia; J98.11 Atelectasis; Z87.891 Personal history of nicotine dependence; R74.01 Elevation of levels of liver transaminase levels; B96.20 Unspecified Escherichia coli [E. coli] as the cause of diseases classified elsewhere; S91.001A Unspecified open wound, right ankle, initial encounter; Z74.09 Other reduced mobility; V89.2XXS Person injured in unspecified motor-vehicle accident, traffic, sequela; X58.XXXA Exposure to other specified factors, initial encounter; Y93.9 Activity, unspecified; Y92.89 Other specified places as the place of occurrence of the external cause
CPT/HCPCS: 36410; 36415; 71045-TC; 80048-TC; 80076-TC; 80202-TC; 81001; 82962-TC; 83605-TC; 83735-TC; 84100-TC; 84443-TC; 84484-TC; 85025-TC; 85730-TC; 87040-TC; 87086-TC; A4223; G0378; J0690; J1170; J1650; J1815; J2250; J2270; J2405; J2543; J2704; J2765; J3010; J3370; J3371; J3490; J7030; J7050; J7060